=== PATIENT | male | born 1955 | race Hispanic/Latino ===

== ENCOUNTER 2020-08-30 13:28 | Emergency (ER) | payer SELFPAY ==
[2020-08-30 18:30] LABS: SARS-CoV-2 PCR by NAA Not Detected (NotDetected)
== END 2020-08-30 14:18 | disposition home or self-care (01) ==
LOC: EDBD 13:28 → ERS 13:28
DX: M25.50 Pain in unspecified joint (principal); Z20.822 Contact with and (suspected) exposure to COVID-19; J45.909 Unspecified asthma, uncomplicated
CPT/HCPCS: 87635; 99283; U0003; U0005